=== PATIENT | male | born 1960 | race Caucasian/White ===

== ENCOUNTER 2021-06-16 12:17 | Emergency (ER) | payer OTHER ==
[~2021-06-16] VITALS: Ht 175.3 cm; Wt 115.9 kg
[2021-06-16] MEDS ORDERED: ORPHENADRINE CITRATE 60 MG/2 ML VIAL. ONE (12:44)
[2021-06-16] MEDS ORDERED: KETOROLAC 60 MG/2 ML VIAL. IM ONE ×2 (12:44→12:45)
[2021-06-16] MEDS ORDERED: ORPHENADRINE CITRATE 60 MG/2 ML VIAL. IM ONE (12:45)
--- NOTE | 2021-06-16 12:52 | PHYS DOC ---
Past History Past Surgical History: Coronary Bypass Surgery, Knee Replacement, Other Additional Past Surgical Histo: BACK SURGERY (LUIS ALBERTO SALAZAR APRN) General Adult EDM: Chief Complaint: BACK PAIN OR INJURY HPI: HPI: Patient is a 61-year-old male being seen in the ER for low back pain. Patient reports that he drove here from [place] today and is having worsening of his chronic low back pain. Patient reports that the low back pain started 2 weeks ago after moving furniture. Patient has a history of chronic low back pain and had a back surgery in November of this year. Patient takes 10 mg of oxycodone at home. Patient reports that the low back pain radiates down both legs. He rates it 10 out of 10. He took his oxycodone prior to arrival. He states that he has Flexeril but has not taken it. Patient denies any injury, saddle anesthesias, loss of bowel or bladder. Patient is ambulatory with the use of a walker. (LUIS ALBERTO SALAZAR APRN) Review of Systems: Review of Systems: 14 body systems of the review of systems have been reviewed. See HPI for pertinent positive and negative responses, otherwise all other systems are negative, nonpertinent or noncontributory (LUIS ALBERTO SALAZAR APRN) Allergies: Allergies: Allergies Coded Allergies Type Severity Reaction Last Updated Verified No Known Drug Allergies 06/16/21 No (LUIS ALBERTO SALAZAR APRN) Physical Exam: PE: Constitutional: Well developed, well nourished, no acute distress, non-toxic appearance. [] HENT: Normocephalic, atraumatic, bilateral external ears normal, oropharynx moist, no oral exudates, nose normal. [] Eyes: PERRL, EOMI, conjunctiva normal, no discharge. [] Neck: Normal range of motion, no cervical spinal tenderness, supple, no stridor. [] Cardiovascular:Heart rate regular rhythm, no murmur [] Lungs & Thorax: Bilateral breath sounds clear to auscultation [] Abdomen: Bowel sounds normal, soft, no tenderness, no masses, no pulsatile masses. [] Skin: Warm, dry, no erythema, no rash. [] Back: Lumbar tenderness with palpation, no crepitus Extremities: No tenderness, no cyanosis, no clubbing, ROM intact, no edema. [] Neurologic: Alert and oriented X 3, normal motor function, normal sensory function, no focal deficits noted. [] Psychologic: Affect normal, judgement normal, mood normal. [] (LUIS ALBERTO SALAZAR APRN) Current Patient Data: Vital Signs: Vital Signs Date Time Temp Pulse Resp B/P (MAP) Pulse Ox O2 Delivery O2 Flow Rate FiO2 06/16/21 12:34 98.3 96 18 152/81 98 Room Air (LUIS ALBERTO SALAZAR APRN) EKG: EKG: [] (LUIS ALBERTO SALAZAR APRN) Radiology/Procedures: Radiology/Procedures: PROCEDURE: CT LUMBAR SPINE WO CONTRAST Exam Date: 06/16/2021 12:[address] LUMBAR SPINE WO Indication: Reason: low back pain, hx surgery / Spl. Instructions: / History: . TECHNIQUE: CT scan of the lumbar spine was performed without intravenous contrast. Coronal and sagittal reconstructed images were reviewed as well. One or more of the following dose reduction techniques were utilized: *Automated exposure control (AEC) *Adjustment of mA and/or kV according to patient size *Use of iterative reconstruction technique *CT scan done according to ALARA, or ALARA/IMAGE GENTLY FINDINGS: Alignment is maintained without spondylolisthesis. The vertebral body heights are maintained without compression fracture. Mild multilevel degenerative changes are noted. No severe osseous central canal stenosis is seen. Moderate vascular calcifications are noted. The visualized retroperitoneum and paraspinal soft tissue structures otherwise appear normal. IMPRESSION: No acute fracture. Degenerative changes noted. Electronically signed by: Justin Severino MD (06/16/2021 2:02 PM) [facility] DICTATED AND SIGNED BY: JUSTIN SEVERINO MD DATE: 06/16/21 2847 CC: LUIS ALBERTO SALAZAR APRN; PCP,NO ~MTH0 0 [] (LUIS ALBERTO SALAZAR APRN) Heart Score: C/O Chest Pain: No Risk Factors: Risk Factors: DM, Current or recent (<one month) smoker, HTN, HLP, family history of CAD, obesity. Risk Scores: Score 0 - 3: 2.5% MACE over next 6 weeks - Discharge Home Score 4 - 6: 20.3% MACE over next 6 weeks - Admit for Clinical Observation Score 7 - 10: 72.7% MACE over next 6 weeks - Early Invasive Strategies (LUIS ALBERTO SALAZAR APRN) Course & Med Decision Making: Course & Med Decision Making Pertinent Labs and Imaging studies reviewed. (See chart for details) Patient is a 61-year-old male being seen in the ER for low back pain after moving furniture 2 weeks ago. Patient has a history of chronic back pain and back surgeries. Patient takes oxycodone and Flexeril at home. CT scanning of the lumbar spine was performed in the ER because patient was concerned that may may have reinjured his back following the moving of furniture. This showed no acute changes, degenerative changes noted. Patient treated with anti- inflammatory medication, muscle relaxer, pain medication in the ER. He was given nausea medication also. The dose of his at home Percocet given in ER. Patient receives oxycodone at home by his primary care provider and received 150 tablets on June 08. I discussed with patient all findings and diagnostic testing as well as the need to follow-up with PCP for further evaluation and treatment or return to the ER if any new or worsening symptoms. Strict return precautions were also discussed at length. Patient voiced understanding and agreement with the plan. Patient is hemodynamically stable at the time of disposition. (LUIS ALBERTO SALAZAR APRN) Dragon Disclaimer: Dragon Disclaimer: This electronic medical record was generated, in whole or in part, using a voice recognition dictation system. (LUIS ALBERTO SALAZAR APRN) Attending Co-Sign The patient was seen and interviewed as well as examined at the bedside. The chart was reviewed. The case was discussed. Agree with the plan of care. (JOSE C DOBBINS DO) Departure Departure: Impression: Primary Impression: Chronic back pain Qualified Codes: M54.42 - Lumbago with sciatica, left side; M54.41 - Lumbago with sciatica, right side; G89.29 - Other chronic pain Disposition: HOME / SELF CARE / HOMELESS Condition: GOOD Referrals: PCP,NO (PCP) Patient Instructions: Back Pain, Adult Additional Instructions: You were seen in the ER today for chronic back pain. A CT scan was performed of your lumbar spine and it was negative for any acute findings. You were treated with pain medication and nausea medication while in the ER. Please continue to take your oxycodone and Flexeril that you are prescribed by your primary care provider for your symptoms. You will need to follow-up with your primary care provider within a week if you require any additional pain medication. If you develop worsening of your back pain, loss of bowel or bladder, numbness or tingling in your groin or extremities, or any new injuries or concerns please return to the ER. EMERGENCY DEPARTMENT GENERAL DISCHARGE INSTRUCTIONS Thank you for coming to [facility] (ED) today and trusting us with you care. We trust that you had a positivie experience in our Emergency Department. If you wish to speak to the department management, you may call the director at [phone]. YOUR FOLLOW UP INSTRUCTIONS ARE FOLLOWS: 1. Do you have a private Doctor? If you do not have a private doctor, please ask for a resource list of physicians or clinics that may be able to assist you with follow up care. 2. The Emergency Physician has interpreted your x-rays. The X-Ray specialist will also review them. If there is a change in the findings, you will be notified in 48 hours when at all possible. 3. A lab test or culture has been done, your results will be reviewed and you will be notified if you need a change in treatment. ADDITIONAL INSTRUCTIONS AND INFORMATION: 1. Your care today has been supervised by a physician who is specially trained in emergency care. Many problems require more than one evaluation for a complete diagnosis and treatment. We recommend that you schedule your follow up appointment as recommended to ensure complete treatment of you illness or injury. If you are unable to obtain follow up care and continue to have a problem, or if your condition worsens, we recommend that you return to the ED. 2. We are not able to safely determine your condition over the phone nor are we able to give sound medical advice over the phone. For these safety reasons, if you call for medical advice we will ask you to come to the ED for further evaluation. 3. If you have any questions regarding these discharge instructions please call the ED at [phone]. SAFETY INFORMATION: In the interest of safety, wellness, and injury prevention; we encourage you to wear your sealbelt, if you smoke; quite smoking, and we encourage family to use a protective helmet for bicycling and other sporting events that present an increased risk for head injury. IF YOUR SYMPTOMS WORSEN OR NEW SYMPTOMS DEVELOP, OR YOU HAVE CONCERNS ABOUT YOUR CONDITION; OR IF YOUR CONDITION WORSENS WHILE YOU ARE WAITING FOR YOUR FOLLOW UP APPOINTMENT; EITHER CONTACT YOUR PRIMARY CARE DOCTOR, THE PHYSICIAN WHOSE NAME AND NUMBER YOU WERE GIVEN, OR RETURN TO THE ED IMMEDIATELY. LUIS ALBERTO SALAZAR APRN Jun 16, 2021 12:52 JOSE C DOBBINS DO Jun 17, 2021 06:20
[2021-06-16] MEDS ORDERED: ONDANSETRON ODT 4 MG TAB.RAPDIS PO ONE (13:00)
[2021-06-16] MEDS ORDERED: MORPHINE SULFATE 2 MG/ML DISP.SYRIN. IM ONE (13:00)
--- NOTE | 2021-06-16 14:04 | RAD ---
Exam Date: 06/16/2021 12:[address] LUMBAR SPINE WO Indication: Reason: low back pain, hx surgery / Spl. Instructions: / History: . TECHNIQUE: CT scan of the lumbar spine was performed without intravenous contrast. Coronal and sagi ttal reconstructed images were reviewed as well. One or more of the following dose reduction techniq ues were utilized: *Automated exposure control (AEC) *Adjustment of mA and/or kV according to patient size *Use of iterative reconstruction technique *CT scan done according to ALARA, or ALARA/IMAGE GENTLY FINDINGS: Alignment is maintained without spondylolisthesis. The vertebral body heights are maintained without compression fracture. Mild multilevel degenerative changes are noted. No severe osseous central ca nal stenosis is seen. Moderate vascular calcifications are noted. The visualized retroperitoneum an d paraspinal soft tissue structures otherwise appear normal. IMPRESSION: No acute fracture. Degenerative changes noted. Electronically signed by: Johnson Severino MD (06/16/2021 2:02 PM) [facility]
[2021-06-16] MEDS ORDERED: oxyCODONE/APAP 10/325 1 TAB TABLET PO ONE (14:15)
[2021-06-16 14:21] VITALS: BP 130/80
== END 2021-06-16 14:22 | disposition home or self-care (01) ==
LOC: ER 12:17
DX: M54.42 Lumbago with sciatica, left side (principal); M54.41 Lumbago with sciatica, right side; G89.29 Other chronic pain; Z95.1 Presence of aortocoronary bypass graft
CPT/HCPCS: 72131; 96372; 99284; J1885; J2270; J2360; Q0162

== ENCOUNTER 2021-08-18 13:56 | Emergency (ER) | payer OTHER ==
[~2021-08-18] VITALS: Ht 175.3 cm; Wt 110.7 kg
--- NOTE | 2021-08-18 16:08 | PHYS DOC ---
Past History Past Surgical History: Coronary Bypass Surgery, Knee Replacement, Other Additional Past Surgical Histo: BACK SURGERY (TERRY PACHECO APRN) Alcohol Use: None (TERRY PACHECO APRN) General Adult EDM: Chief Complaint: CONGESTION HPI: HPI: Patient is a 61-year-old male presents with nasal congestion and sinus drainage. Patient states symptoms started 5 days ago. Patient was concerned because he has a back surgery scheduled in a couple of weeks and does not want to be sick prior to the surgery. Patient has not been taking anything at home for symptom relief. Denies fever. Denies nausea/vomiting/diarrhea. (TERRY PACHECO APRN) Review of Systems: Review of Systems: ROS At least 10 ROS systems have been reviewed and are negative except as documented in the HPI. General: Negative except as outlined in HPI above. Skin: Negative except as outlined in HPI above. HEENT: Negative except as outlined in HPI above. Neck: Negative except as outlined in HPI above. Respiratory: Negative except as outlined in HPI above.. Cardiovascular: Negative except as outlined in HPI above. Abdomen: Negative except as outlined in HPI above. : Negative except as outlined in HPI above. Back/MSK: Negative except as outlined in HPI above. Neuro: Negative except as outlined in HPI above. Psych: Negative except as outlined in HPI above. (TERRY PACHECO APRN) Allergies: Allergies: Allergies Coded Allergies Type Severity Reaction Last Updated Verified azithromycin Allergy Unknown 08/18/21 Yes (TERRY PACHECO APRN) Physical Exam: PE: Constitutional: Well developed, well nourished, no acute distress, non-toxic appearance. [] HENT: Normocephalic, atraumatic, bilateral external ears normal, TM is translucentpale west, , rhinorrhea, sinus pressure, otalgiabilaterally Eyes: PERRLA, EOMI, conjunctiva normal, no discharge. [] Neck: Normal range of motion, no tenderness, supple, no stridor. [] Cardiovascular:Heart rate regular rhythm, no murmur [] Lungs & Thorax: Bilateral breath sounds clear to auscultation [] Abdomen: Bowel sounds normal, soft, no tenderness, no masses, no pulsatile masses. [] Skin: Warm, dry, no erythema, no rash. [] Back: No tenderness, no CVA tenderness. [] Extremities: No tenderness, no cyanosis, no clubbing, ROM intact, no edema. [] Neurologic: Alert and oriented X 3, normal motor function, normal sensory function, no focal deficits noted. [] Psychologic: Affect normal, judgement normal, mood normal. [] (TERRY PACHECO APRN) Current Patient Data: Vital Signs: Vital Signs Date Time Temp Pulse Resp B/P (MAP) Pulse Ox O2 Delivery O2 Flow Rate FiO2 08/18/21 14:24 98.4 93 18 112/75 (87) 97 Room Air (TERRY PACHECO APRN) EKG: EKG: [] (TERRY PACHECO APRN) Radiology/Procedures: Radiology/Procedures: [] (TERRY PACHECO APRN) Heart Score: C/O Chest Pain: No Risk Factors: Risk Factors: DM, Current or recent (<one month) smoker, HTN, HLP, family history of CAD, obesity. Risk Scores: Score 0 - 3: 2.5% MACE over next 6 weeks - Discharge Home Score 4 - 6: 20.3% MACE over next 6 weeks - Admit for Clinical Observation Score 7 - 10: 72.7% MACE over next 6 weeks - Early Invasive Strategies (TERRY PACHECO APRN) Course & Med Decision Making: Course & Med Decision Making Pertinent Labs and Imaging studies reviewed. (See chart for details) [] 61-year-old male presents with nasal congestion and otalgia. No abnormal findings on physical exam. Symptoms started 5 days ago. Advised patient to purchase [id number] Mucinex DM to help with symptoms along with Afrin. Patient should follow-up with primary care if symptoms do not improve. Patient is afebrile. Denies all other symptoms. Patient states he understands discharge instructions. Hemodynamically stable upon disposition. (TERRY PACHECO APRN) Course & Med Decision Making I was the Attending physician on the above date of service of this patient. This patient was evaluated, examined, treated, and dispositioned from the emergency department by the mid-level practitioner. Although I was working at the time , no assistance was requested. Electronically signed, Jose Del Rio DO (JOSE DEL RIO DO) Whit Disclaimer: Whit Disclaimer: This electronic medical record was generated, in whole or in part, using a voice recognition dictation system. (TERRY PACHECO APRN) Departure Departure: Impression: Primary Impression: Sinus pressure Additional Impression: Otalgia of both ears Disposition: HOME / SELF CARE / HOMELESS Condition: STABLE Referrals: DIPIKA HANSEN (PCP) Patient Instructions: Sinusitis, [id number] Additional Instructions: You were seen in the emergency room for sinus pressure and ear pain. Please purchase Mucinex DM [id number] and start taking to treat symptoms. Make sure you are drinking plenty of fluids as well. If your symptoms do not improve in the next few days I would follow-up with your PCP. EMERGENCY DEPARTMENT GENERAL DISCHARGE INSTRUCTIONS Thank you for coming to [facility] (ED) today and trusting us with you care. We trust that you had a positivie experience in our Emergency Department. If you wish to speak to the department management, you may call the director at [phone]. YOUR FOLLOW UP INSTRUCTIONS ARE FOLLOWS: 1. Do you have a private Doctor? If you do not have a private doctor, please ask for a resource list of physicians or clinics that may be able to assist you with follow up care. 2. The Emergency Physician has interpreted your x-rays. The X-Ray specialist will also review them. If there is a change in the findings, you will be notified in 48 hours when at all possible. 3. A lab test or culture has been done, your results will be reviewed and you will be notified if you need a change in treatment. ADDITIONAL INSTRUCTIONS AND INFORMATION: 1. Your care today has been supervised by a physician who is specially trained in emergency care. Many problems require more than one evaluation for a complete diagnosis and treatment. We recommend that you schedule your follow up appointment as recommended to ensure complete treatment of you illness or injury. If you are unable to obtain follow up care and continue to have a problem, or if your condition worsens, we recommend that you return to the ED. 2. We are not able to safely determine your condition over the phone nor are we able to give sound medical advice over the phone. For these safety reasons, if you call for medical advice we will ask you to come to the ED for further evaluation. 3. If you have any questions regarding these discharge instructions please call the ED at [phone]. SAFETY INFORMATION: In the interest of safety, wellness, and injury prevention; we encourage you to wear your sealbelt, if you smoke; quite smoking, and we encourage family to use a protective helmet for bicycling and other sporting events that present an increased risk for head injury. IF YOUR SYMPTOMS WORSEN OR NEW SYMPTOMS DEVELOP, OR YOU HAVE CONCERNS ABOUT YOUR CONDITION; OR IF YOUR CONDITION WORSENS WHILE YOU ARE WAITING FOR YOUR FOLLOW UP APPOINTMENT; EITHER CONTACT YOUR PRIMARY CARE DOCTOR, THE PHYSICIAN WHOSE NAME AND NUMBER YOU WERE GIVEN, OR RETURN TO THE ED IMMEDIATELY. TERRY PACHECO APRN Aug 18, 2021 16:08 JOSE DEL RIO DO Aug 22, 2021 00:32
[2021-08-18 16:33] VITALS: BP 126/75
== END 2021-08-18 16:32 | disposition home or self-care (01) ==
LOC: ER 13:56
DX: J32.9 Chronic sinusitis, unspecified (principal); H92.03 Otalgia, bilateral; Z95.1 Presence of aortocoronary bypass graft; Z88.1 Allergy status to other antibiotic agents
CPT/HCPCS: 99284

== ENCOUNTER 2021-08-26 12:28 | Emergency (ER) | payer OTHER ==
[~2021-08-26] VITALS: Ht 177.8 cm; Wt 115.0 kg
--- NOTE | 2021-08-26 12:39 | PHYS DOC ---
Past History Past Medical History: Diabetes Past Surgical History: Coronary Bypass Surgery, Knee Replacement, Other Additional Past Surgical Histo: BACK SURGERY Alcohol Use: None Adult General Chief Complaint Chief Complaint: WEAKNESS/GENERALIZED HPI HPI Patient is a 61-year-old male presenting via EMS for multiple complaints. Laureano benedict reports he has had a generalized bandlike headache that has been going on for past 1 week. Admits he has had major changes in medication as he is currently being cycled off various narcotic and benzodiazepine medications. States he is also in the process of undergoing a revision back surgery for chronic back issues at [facility] that was scheduled for this up coming Friday. States 72 hours ago he started developing generalized URI symptoms, has had rhinorrhea, postnasal drip, nasal congestion and generalized fatigue. He is not vaccinated against COVID-19 and discloses he has not been febrile, had any loss of taste or smell or any GI issues. He reports his symptoms have been off going and he has had waxing and waning numbness to his left face primarily as left lip for past 16 hours. Due to ongoing constellation of symptoms, he called EMS for transport to our facility as he was concern for TIA as he has suffered from these in the past. On EMS arrival, patient was found to be hemodynamically stable, GCS 15, [id number] glucose unremarkable. On arrival, patient continuing to complain of bandlike headache and numbness to left face Review of Systems Review of Systems Fourteen body systems of review of systems have been reviewed. See HPI for pertinent positives and negative responses, other matute all other systems are negative, non-pertinent or non-contributory Allergies Allergies Allergies Coded Allergies Type Severity Reaction Last Updated Verified azithromycin Allergy Unknown 08/18/21 Yes Physical Exam Physical Exam General: Appears well, non toxic, and comfortable Skin: Warm, dry. Normal for ethnicity. HEENT: Atraumatic. PERRLA. Moist mucous membranes. Neck: Trachea midline. Normal ROM. Respiratory: Normal WOB. CTAB w/o w/r/r. No tachypnea. Cardiovascular: Regular rate and rhythm. Normal peripheral perfusion. No edema. Abdomen: Soft. Non tender. No distension. Back: Normal ROM. Musculoskeletal: No swelling or deformity. Neuro: Alert and oriented x 4. MAEE. GCS 15. Normal FNF. Negative pronator drift. Normal heel to ha. Normal Reema. CN II-XII intact but patient does admit to decreased sensation to touch of left V1 and V3 distributions of facial nerve. Normal strength and sensation. Normal speech. Psych: Normal affect and mood. Current Patient Data Vital Signs Vital Signs Date Time Temp Pulse Resp B/P (MAP) Pulse Ox O2 Delivery O2 Flow Rate FiO2 08/26/21 12:28 98.6 92 18 149/105 (120) 99 Room Air Vital Signs Date Time Temp Pulse Resp B/P (MAP) Pulse Ox O2 Delivery O2 Flow Rate FiO2 08/26/21 12:28 98.6 92 18 149/105 (120) 99 Room Air Lab Results Laboratory Tests Test 08/26/21 12:40 08/26/21 13:45 White Blood Count 7.2 x10^3/uL Red Blood Count 4.74 x10^6/uL Hemoglobin 12.9 g/dL Hematocrit 38.1 % Mean Corpuscular Volume 80 fL Mean Corpuscular Hemoglobin 27 pg Mean Corpuscular Hemoglobin Concent 34 g/dL Red Cell Distribution Width 13.9 % Platelet Count 274 x10^3/uL Neutrophils (%) (Auto) 57 % Lymphocytes (%) (Auto) 34 % Monocytes (%) (Auto) 5 % Eosinophils (%) (Auto) 3 % Basophils (%) (Auto) 1 % Neutrophils # (Auto) 4.1 x10^3uL Lymphocytes # (Auto) 2.4 x10^3/uL Monocytes # (Auto) 0.4 x10^3/uL Eosinophils # (Auto) 0.2 x10^3/uL Basophils # (Auto) 0.1 x10^3/uL Sodium Level 138 mmol/L Potassium Level 3.6 mmol/L Chloride Level 102 mmol/L Carbon Dioxide Level 28 mmol/L Anion Gap 8 Blood Urea Nitrogen 17 mg/dL Creatinine 1.0 mg/dL Estimated GFR (Cockcroft-Gault) 76.2 BUN/Creatinine Ratio 17 Glucose Level 190 mg/dL Calcium Level 8.9 mg/dL Total Bilirubin 0.3 mg/dL Aspartate Amino Transf (AST/SGOT) 12 U/L Alanine Aminotransferase (ALT/SGPT) 32 U/L Alkaline Phosphatase 109 U/L Troponin I High Sensitivity 6 ng/L Total Protein 6.2 g/dL Albumin 3.5 g/dL Albumin/Globulin Ratio 1.3 SARS-CoV-2 Antigen (Rapid) Negative Current Medications Medications (Trade) Dose Ordered Sig/Suly Route PRN Reason Start Time Stop Time Status Last Admin Dose Admin Iohexol (Omnipaque 350 Mg/ml) 100 ml 1X ONCE IV 08/26/21 13:00 08/26/21 13:01 DC 08/26/21 13:00 Info (Do NOT chart on this entry -- for MONITORING) 1 each PRN DAILY PRN MC SEE COMMENTS 08/26/21 13:15 08/28/21 13:14 Prochlorperazine Edisylate (Compazine) 10 mg 1X ONCE IV 08/26/21 13:15 08/26/21 13:20 DC 08/26/21 13:21 Diphenhydramine HCl (Benadryl) 25 mg 1X ONCE IVP 08/26/21 13:15 08/26/21 13:20 DC 08/26/21 13:20 EKG EKG EKG ordered and interpreted by myself at 1245 hrs. as sinus rhythm at 83 bpm, unremarkable intervals, left axis deviation, no obvious ischemic findings, no STEMI Radiology/Procedures Radiology/Procedures EXAM: CHEST 1 VIEW History: Dizziness COMPARISON: None available. TECHNIQUE: Single portable radiograph of the chest FINDINGS: The cardiac silhouette is unremarkable. The lungs are clear bilaterally. The costophrenic sulci are clear and well demarcated. IMPRESSION: No radiographic evidence of an acute cardiopulmonary process. Electronically signed by: Phoenix Paul MD (08/26/2021 1:29 PM) [id number] ///////////////// CT head without contrast 08/26/2021. Reason for exam: Dizziness. Helical noncontrast images were performed. Exposure: One or more of the followi ng individualized dose reduction techniques were utilized for this examination: 1. Automated exposure control 2. Adjustment of the mA and/or kV according to patient size 3. Use of iterative reconstruction technique. FINDINGS: There is no apparent intracranial hemorrhage or abnormal extra-axial fluid collection. No area of abnormal density is seen. The ventricles and basilar cisterns are normally positioned. The sinuses and mastoid air cells appear clear. IMPRESSION: No acute abnormality. CTA head and neck with and without contrast 08/26/2021 Thin section CTA images were performed through the neck and head using infusion of 100 mL Omnipaque 350. Multiplanar and 3-D reformations were performed. Carotid stenoses in the neck were graded per NASCET criteria. Exposure: One or more of the following individualized dose reduction techniques were utilized for this examination: 1. Automated exposure control 2. Adjustment of the mA and/or kV according to patient size 3. Use of iterative reconstruction technique. CTA NECK: There is the standard branching pattern of the great vessels. The common carotid artery show no significant plaque or narrowing. There is some plaque at both carotid bulbs without evidence of significant stenosis. The internal carotid arteries appear normal through their cervical segments. Both vertebral arteries are patent and are similar in caliber. They show no apparent abnormality through their cervical segments. No subclavian artery abnormality is seen. Although this study was not performed to evaluate other structures, no mass or adenopathy is seen in the neck. The airway appears normal. The salivary glands and thyroid show no abnormality. The lung apices, paranasal sinuses and mastoid air cells are clear. CTA HEAD: The distal vertebral arteries appear normal extending to their confluence. The basilar artery and internal carotid arteries are patent extending through the skull base to the brain. There is some calcified plaque along both internal carotid arteries at the level of the skull base. As well as can be determined, there is no significant narrowing, although calcification at the distal left ICA somewhat limits evaluation. The anterior, middle and posterior cerebral branches are patent bilaterally and show no apparent abnormality extending to their major branch points. No abnormal vascularity is seen. The visualized cerebellar branches appear normal. IMPRESSION: CTA neck: Atherosclerosis. No evidence of vessel occlusion or significant stenosis. CTA HEAD: Atherosclerosis. No evidence of large vessel occlusion. No apparent significant stenosis, although evaluation of the distal left ICA is somewhat limited due to calcified plaque. Electronically signed by: Jonathan Kowalski Jr., MD (08/26/2021 2:09 PM) [id number] Heart Score C/O Chest Pain: No HEART Score for Chest Pain: HEART Score for Chest Pain Response (Comments) Value History Slighlty/Non-Suspicious 0 ECG Normal 0 Age >45 - < 65 1 Risk Factors 1 or 2 Risk Factors 1 Troponin < Normal Limit 0 Total 2 Risk Factors: Risk Factors: DM, Current or recent (<one month) smoker, HTN, HLP, family history of CAD, obesity. Risk Scores: Risk Factors: DM, Current or recent (<one month) smoker, HTN, HLP, family history of CAD, obesity. Course & Med Decision Making Course & Med Decision Making ABCs unremarkable HPI physical exam and comprehensive ER work-up nonconcerning for any emergent or surgical issues Patient likely suffering from URI, COVID-19 rapid test negative with PCR pending. Continued supportive care advised Patient dealing with significant chronic pain. Exacerbated by recent efforts in outpatient setting to decrease outpatient opioid and benzodiazepine dependence I disclose little indication for further diagnostic work-up and/or need for hosp italization at present. Patient and significant other at bedside agreed. Joint decision among all for continued supportive care practices and close outpatient follow-up Dragon Disclaimer Dragon Disclaimer This electronic medical record was generated, in whole or in part, using a voice recognition dictation system. NIH Stroke Scale: NIH Stroke Scale Response (Comments) Value Level of Consciousness: 0 Alert/Responsive 0 LOC Questions: 0 Answers both correctly 0 LOC Commands: 0 Performs both tasks 0 Best Gaze: 0 Normal 0 Visual: 0 No visual loss 0 Facial Palsy: 0 Normal, symmetrical 0 Motor - Left Arm 0 No drift 0 Motor - Right Arm 0 No drift 0 Motor - Left Leg 0 No drift 0 Motor: Right Leg 0 No drift 0 Limb Ataxia: 0 Absent 0 Sensory: 1 Mid to moderate loss 1 Best Language: 0 Normal 0 Dysathria: 0 Normal 0 Extinction and Inattention: 0 Normal 0 Total 1 Departure Departure: Impression: Primary Impression: Headache Additional Impressions: Paresthesia Chronic back pain Person under investigation for COVID-19 Disposition: 01 HOME / SELF CARE / HOMELESS Condition: STABLE Referrals: DIPIKA HANSEN (PCP) Additional Instructions: As discussed prior to ER departure, your vitals, physical exam and comprehensive ER work-up were nonconcerning for any emergent or surgical issues. As discussed, you have numerous chronic medical issues that are ongoing and appear uncontrolled. You are pending outpatient back surgery. You have a history of headaches and allergies. I disclose there was no obvious intracranial abnormality such as stroke and there was little indication for further diagn ostic work-up and/or hospitalization based on our work-up today. With that said, it is imperative that you contact your primary care physician first thing in the morning to review ER visit today and need for close outpatient follow-up. We tested you for COVID-19 but this test does not come back for 1 to 2 days. In the meantime you need to quarantine yourself at home away from all other individuals, especially those who are elderly or have any other chronic health issues or an immunocompromised status. You should return to the ED if you develop worsening cough, shortness of breath, chest pain, or any other new or concerning symptoms. Alternate Tylenol and ibuprofen as needed for body aches and pain. If your test does come back positive you need to quarantine yourself for 10 days until symptom-free. You should make sure to drink plenty of fluids and get plenty of rest. If any concerning signs or symptoms present prior to outpatient follow-up please do not hesitate to come back for repeat evaluation. It was a pleasure to take care of you and I wish you the best going forward Problem Qualifiers JOSE DEL RIO DO Aug 26, 2021 12:39
[2021-08-26 12:58] LABS: BASO # 0.1 x10^3/uL (0.0-0.2); BASO % 1 % (0-3); EOS # 0.2 x10^3/uL (0.0-0.7); EOS % 3 % (0-3); HEMATOCRIT 38.1 % (39.0-53.0); HEMOGLOBIN 12.9 g/dL (13.0-17.5); LYMPH # 2.4 x10^3/uL (1.0-4.8); LYMPH % 34 % (24-48); MEAN CORPUSCULAR HEMOGLOBIN 27 pg (25-35); MEAN CORPUSCULAR HGB CONC 34 g/dL (31-37); MEAN CORPUSCULAR VOLUME 80 fL (79-100); MONO # 0.4 x10^3/uL (0.0-1.1); MONO % 5 % (0-9); NEUT # 4.1 x10^3uL (1.8-7.7); NEUT % 57 % (31-73); PLATELET COUNT 274 x10^3/uL (140-400); RED BLOOD COUNT 4.74 x10^6/uL (4.30-5.70); RED CELL DISTRIBUTION WIDTH 13.9 % (11.5-14.5); WHITE BLOOD COUNT 7.2 x10^3/uL (4.0-11.0)
[2021-08-26] MEDS ORDERED: IOHEXOL 350 MG/ML 100 ML VIAL. IV ONE (13:00)
[2021-08-26 13:08] LABS: CALCIUM 8.9 mg/dL (8.5-10.1); GFR 76.2; POTASSIUM 3.6 mmol/L (3.5-5.1)
[2021-08-26 13:15] LABS: ALBUMIN 3.5 g/dL (3.4-5.0); ALBUMIN/GLOBULIN RATIO 1.3 (1.0-1.7); TOTAL BILIRUBIN 0.3 mg/dL (0.2-1.0); TOTAL PROTEIN 6.2 g/dL (6.4-8.2)
[2021-08-26] MEDS ORDERED: CONTRAST GIVEN. MC PRN (13:15)
[2021-08-26] MEDS ORDERED: diphenhydrAMINE 50 MG/ML VIAL IVP ONE (13:15)
[2021-08-26] MEDS ORDERED: PROCHLORPERAZINE 10 MG/2 ML VIAL. IV ONE (13:15)
--- NOTE | 2021-08-26 13:15 | EKG ---
[address] [address] Test Date: 2021-08-26 Test Time: 12:42:25 Pat Name: ROLAN GODDARD Department: Room: Gender: M Grind Operator: ARTIS : 1960 Requested By: JOSE DEL RIO Order Number: [id number] Reading MD: Checo Kasper MD Measurements Intervals [place] Rate: 83 P: 31 CT: 190 QRS: -8 QRSD: 88 T: 28 QT: 362 QTc: 431 Interpretive Statements SINUS RHYTHM Electronically Signed On 08-26-2021 13:36:23 CATH LAB TECHNOLOGIST by Checo Kasper MD
--- NOTE | 2021-08-26 13:32 | RAD ---
EXAM: CHEST 1 VIEW History: Dizziness COMPARISON: None available. TECHNIQUE: Single portable radiograph of the chest FINDINGS: The cardiac silhouette is unremarkable. The lungs are clear bilaterally. The costophrenic sulci are clear and well demarcated. IMPRESSION: No radiographic evidence of an acute cardiopulmonary process. Electronically signed by: Phoenix Paul MD (08/26/2021 1:29 PM) [id number]
--- NOTE | 2021-08-26 14:11 | RAD ---
CT head without contrast 08/26/2021. Reason for exam: Dizziness. Helical noncontrast images were performed. Exposure: One or more of the following individualized dose reduction techniques were utilized for this examination: 1. Automated exposure control 2. Adjustme nt of the mA and/or kV according to patient size 3. Use of iterative reconstruction technique. FINDINGS: There is no apparent intracranial hemorrhage or abnormal extra-axial fluid collection. No a roney of abnormal density is seen. The ventricles and basilar cisterns are normally positioned. The sin uses and mastoid air cells appear clear. IMPRESSION: No acute abnormality. CTA head and neck with and without contrast 08/26/2021 Thin section CTA images were performed through the neck and head using infusion of 100 mL Omnipaque 3 50. Multiplanar and 3-D reformations were performed. Carotid stenoses in the neck were graded per RON CET criteria. Exposure: One or more of the following individualized dose reduction techniques were ut ilized for this examination: 1. Automated exposure control 2. Adjustment of the mA and/or kV accord ing to patient size 3. Use of iterative reconstruction technique. CTA NECK: There is the standard branching pattern of the great vessels. The common carotid artery bassam w no significant plaque or narrowing. There is some plaque at both carotid bulbs without evidence of significant stenosis. The internal carotid arteries appear normal through their cervical segments. Jose th vertebral arteries are patent and are similar in caliber. They show no apparent abnormality throug h their cervical segments. No subclavian artery abnormality is seen. Although this study was not performed to evaluate other structures, no mass or adenopathy is seen in the neck. The airway appears normal. The salivary glands and thyroid show no abnormality. The lung ap ices, paranasal sinuses and mastoid air cells are clear. CTA HEAD: The distal vertebral arteries appear normal extending to their confluence. The basilar song ry and internal carotid arteries are patent extending through the skull base to the brain. There is s ome calcified plaque along both internal carotid arteries at the level of the skull base. As well as can be determined, there is no significant narrowing, although calcification at the distal left ICA s omewhat limits evaluation. The anterior, middle and posterior cerebral branches are patent bilaterall y and show no apparent abnormality extending to their major branch points. No abnormal vascularity is seen. The visualized cerebellar branches appear normal. IMPRESSION: CTA neck: Atherosclerosis. No evidence of vessel occlusion or significant stenosis. CTA HEAD: Atherosclerosis. No evidence of large vessel occlusion. No apparent significant stenosis, a lthough evaluation of the distal left ICA is somewhat limited due to calcified plaque. Electronically signed by: Jonathan Kowalski Jr., MD (08/26/2021 2:09 PM) [id number]
[2021-08-26 15:05] VITALS: BP 142/98
== END 2021-08-26 15:05 | disposition home or self-care (01) ==
LOC: ER 12:28
DX: R51.9 Headache, unspecified (principal); R20.2 Paresthesia of skin; G89.29 Other chronic pain; E11.9 Type 2 diabetes mellitus without complications; Z20.822 Contact with and (suspected) exposure to COVID-19; Z95.1 Presence of aortocoronary bypass graft; Z88.1 Allergy status to other antibiotic agents
CPT/HCPCS: 36415; 70450; 70496; 70498; 71045; 80053; 84484; 85025; 87426; 93005; 96374; 96375; 99285; C9803; J0780; J1200; Q9967; U0003

== ENCOUNTER 2021-10-15 11:30 | Emergency (ER) | payer OTHER ==
[~2021-10-15] VITALS: Ht 175.3 cm; Wt 112.0 kg
--- NOTE | 2021-10-15 11:51 | PHYS DOC ---
Past History Past Medical History: Diabetes Past Surgical History: Cholecystectomy, Coronary Bypass Surgery, Knee Replacement Additional Past Surgical Histo: BACK SURGERY Alcohol Use: Sober General Adult EDM: Chief Complaint: ALLERGIC REACTION HPI: HPI: Patient is a 61-year-old male who presents to the emergency department for an a llergic reaction. Patient reports that 45 minutes ago he started having a rash to his back and his hands and feels like he is having swelling to his tongue and shortness of breath. Patient thinks that he is allergic to his dish soap that he used today. Patient denies any drooling, nausea, vomiting, fevers. He took 50 mg of Benadryl prior to arrival. Review of Systems: Review of Systems: 14 body systems of the review of systems have been reviewed. See HPI for pertinent positive and negative responses, otherwise all other systems are negative, nonpertinent or noncontributory Allergies: Allergies: Allergies Coded Allergies Type Severity Reaction Last Updated Verified Iodinated Contrast Media Allergy Unknown 08/26/21 Yes azithromycin Allergy Unknown 08/18/21 Yes Physical Exam: PE: Constitutional: Well developed, well nourished, no acute distress, non-toxic appearance. [] HENT: Normocephalic, atraumatic, bilateral external ears normal, oropharynx moist, no oral exudates, no oropharyngeal edema, no oral lesions, patient maintaining secretions, uvula midline,, nose normal. [] Eyes: PERRL, EOMI, conjunctiva normal, no discharge. [] Neck: Normal range of motion, no tenderness, supple, no stridor. [] Cardiovascular:Heart rate regular rhythm, no murmur [] Lungs & Thorax: Bilateral breath sounds clear to auscultation [] Abdomen: Bowel sounds normal, soft, no tenderness, no masses, no pulsatile masses. [] Skin: Warm, dry, no erythema, hive-like rash noted to patient's back and bilateral upper arms Back: Normal range of motion Extremities: No tenderness, no cyanosis, no clubbing, ROM intact, no edema. [] Neurologic: Alert and oriented X 3, normal motor function, normal sensory function, no focal deficits noted. [] Psychologic: Affect normal, judgement normal, mood normal. [] EKG: EKG: [] Radiology/Procedures: Radiology/Procedures: [] Heart Score: C/O Chest Pain: N/A Risk Factors: Risk Factors: DM, Current or recent (<one month) smoker, HTN, HLP, family history of CAD, obesity. Risk Scores: Score 0 - 3: 2.5% MACE over next 6 weeks - Discharge Home Score 4 - 6: 20.3% MACE over next 6 weeks - Admit for Clinical Observation Score 7 - 10: 72.7% MACE over next 6 weeks - Early Invasive Strategies Course & Med Decision Making: Course & Med Decision Making Pertinent Labs and Imaging studies reviewed. (See chart for details) [] Patient presents to the emergency department for allergic reaction to his dish soap. Patient has a rash to his back and bilateral upper arms. Patient took 50 mg of Benadryl prior to arrival. Patient also treated with steroid and Pepcid. Patient reports complete resolution in his symptoms following treatment in the emergency department. He was observed in the emergency department, and to the rash has resolved. Patient advised to continue taking Benadryl if he develops a rash and he will be discharged home with a steroid. I discussed with patient all findings and diagnostic testing as well as the need to follow-up with PCP for further evaluation and treatment or return to the ER if any new or worsening symptoms. Strict return precautions were also discussed at length. Patient voiced understanding and agreement with the plan. Patient is hemodynamically stable at the time of disposition. Whit Disclaimer: Whit Disclaimer: This electronic medical record was generated, in whole or in part, using a voice recognition dictation system. Departure Departure: Impression: Primary Impression: Allergic reaction Qualified Codes: T78.40XA - Allergy, unspecified, initial encounter Additional Impression: Urticaria Disposition: 01 HOME / SELF CARE / HOMELESS Condition: GOOD Referrals: PCP,NO (PCP) Patient Instructions: Rash Additional Instructions: You were seen in the emergency department for an allergic reaction. You were treated with allergic reaction cocktail consisting of Pepcid and a steroid. If you develop a rash at home, you can take Benadryl as directed. You can also take Pepcid [id number]. You are being discharged home with a steroid to take as directed. Please avoid the allergen. Please follow-up with your primary care provider tomorrow regarding your ER visit. Please return to the emergency department if you develop rash, shortness of breath, chest pain, high fevers refractory to treatment, inability to swallow or maintaining your secretions, intractable nausea or vomiting. Scripts Prednisone (PREDNISONE) 20 Mg Tablet 2 TAB PO DAILY for allergies for 5 Days, #10 TAB 0 Refills Prov: LUIS ALBERTO SALAZAR APRN 10/15/21 LUIS ALBERTO SALAZAR APRN Oct 15, 2021 11:51
[2021-10-15] MEDS ORDERED: FAMOTIDINE 20 MG/2 ML VIAL IVP ONE ×2 (12:00)
[2021-10-15] MEDS ORDERED: methylPREDNISolone SOD SUCC PF 125 MG/2 ML VIAL. IV ONE (12:00)
[2021-10-15] MEDS ORDERED: PRED20TA PO (12:36)
[2021-10-15 12:55] VITALS: BP 138/86
== END 2021-10-15 13:00 | disposition home or self-care (01) ==
LOC: ER 11:30
DX: T78.40XA Allergy, unspecified, initial encounter (principal); L50.9 Urticaria, unspecified; E11.9 Type 2 diabetes mellitus without complications; Z95.1 Presence of aortocoronary bypass graft; Z91.041 Radiographic dye allergy status; Z88.1 Allergy status to other antibiotic agents; X58.XXXA Exposure to other specified factors, initial encounter
CPT/HCPCS: 96374; 96375; 99284; J2930; J3490

== ENCOUNTER → 2021-11-06 | Outpatient (CLI) | payer MEDICARE, OTHER ==
[2021-10-15 12:55] VITALS: BP 138/86
[~2021-11-06] MED LIST: PRED20TA PO
--- NOTE | 2021-11-06 09:26 | RAD ---
EXAM: CT NECK SOFT TISSUE WITHOUT CONTRAST DATE: 11/06/2021 8:58 AM INDICATION: SIALADENITIS COMPARISON: None. TECHNIQUE: Axial computed tomography images of the neck without intravenous contrast according to t standard neck protocol. Multiplanar reformats were performed. One or more of the following dose re duction techniques were utilized: Automated exposure control (AEC), Adjustment of mA and/or kV accord ing to patient size, Use of iterative reconstruction technique such as ASiR, CT scan done according t o ALARA and image gently/image wisely FINDINGS: No cervical mass or lymphadenopathy. The parotid, submandibular, and thyroid glands are normal. The u nenhanced vessels of the neck are normal. The visualized aerodigestive tract is normal. The visualized posterior fossa and brain is normal. The visualized orbits and paranasal sinuses are n ormal. Moderate multilevel degenerative disc desiccation. Multilevel spinal canal stenosis secondary to disc protrusions and marginal osteophytes. Multilevel neural foraminal narrowing secondary to uncovertebr al and facet arthrosis. The visualized lung apices are clear. IMPRESSION: No asymmetric salivary gland enlargement or inflammation. No fluid collection. No sialolithiasis. Electronically signed by: Patel Bangura MD (11/06/2021 9:24 AM) [id number]
== END ==
LOC: CT 08:47
PROVIDERS: ATTEND Otolaryngology
DX: K11.20 Sialoadenitis, unspecified (principal); M25.78 Osteophyte, vertebrae; M48.00 Spinal stenosis, site unspecified
CPT/HCPCS: 70490

== ENCOUNTER → 2021-11-20 | Outpatient (CLI) | payer MEDICARE, OTHER ==
--- NOTE | 2021-11-21 10:57 | CARD ---
MR#: [id number] Date of Study: 11/20/2021 Ordering Physician: CM GRIFFIN, Referring Physician: CM GRIFFIN, Tech: Cecille Rodriguez, [facility] APPROVED REPORT EXAM: Two-dimensional and M-mode echocardiogram with Doppler and color Doppler. Other Information Quality : AverageHR: 81bpm INDICATION Cardiac Disease: CAD RISK FACTORS Hypertension Hyperlipidemia Diabetes Asthma 2D DIMENSIONS Left Atrium(2D)4.0 (1.6-4.0cm)IVSd1.2 (0.7-1.1cm) Aortic Root(2D)3.2 (2.0-3.7cm)LVDd5.8 (3.9-5.9cm) LVOT Diameter2.3 (1.8-2.4cm)PWd1.2 (0.7-1.1cm) LVDs3.8 (2.5-4.0cm)FS (%) 35.4 % SV107.5 ml Aortic Valve AoV Peak Abraham.121.1cm/sAoV VTI22.9cm AO Peak GR.5.9mmHgLVOT Peak Abraham.95.8cm/s LVOT VTI 17.88cmAO Mean GR.3mmHg BRIGIDO (VMAX)3.74bk7LMR (VTI)3.12cm2 Mitral Valve MV E Cvfuofht22.8cm/sMV E Peak Gr.2mmHg MV DECEL [id number] A Xfagsskb54.7cm/s MV E Mean Gr.1mmHgE/A Ratio0.8 Pulmonary Valve PV Peak Ykncidoa59.8cm/sPV Peak Grad.3mmHg LEFT VENTRICLE The left ventricle is normal size. There is mild concentric left ventricular hypertrophy. The left ve ntricular systolic function is normal and the ejection fraction is within normal range. The Ejection Fraction is 50-55%. There is normal LV segmental wall motion. Transmitral Doppler flow pattern is Gra de I-abnormal relaxation pattern. RIGHT VENTRICLE The right ventricle is mildly dilated. There is normal right ventricular wall thickness. The right ve ntricular systolic function is normal. ATRIA The left atrium size is normal. The right atrium is borderline dilated. The interatrial septum is int act with no evidence for an atrial septal defect or patent foramen ovale as noted on 2-D or Doppler i maging. AORTIC VALVE The aortic valve is normal in structure and function. Doppler and Color Flow revealed no significant aortic regurgitation. There is no significant aortic valvular stenosis. Calculated aortic valve area is 3.1 cm2 with maximum pressure gradient of 7 mmHg and mean pressure gradient of 4 mmHg. MITRAL VALVE The mitral valve is normal in structure and function. There is no evidence of mitral valve prolapse. There is no mitral valve stenosis. Doppler and Color Flow revealed trace mitral valve regurgitation. TRICUSPID VALVE The tricuspid valve is normal in structure and function. Doppler and Color Flow revealed no tricuspid valve regurgitation noted. There is no tricuspid valve stenosis. PULMONIC VALVE The pulmonic valve is not well visualized. Doppler and Color Flow revealed no pulmonic valvular regur gitation. GREAT VESSELS The aortic root is normal in size. The ascending aorta is mildly dilated measuring 3.7 cm. The IVC is normal in size and collapses >50% with inspiration. PERICARDIAL EFFUSION There is a trace pericardial effusion with no hemodynamic significance. Critical Notification Critical Value: No <Conclusion> The left ventricle is normal size. The left ventricular systolic function is normal and the ejection fraction is within normal range. The Ejection Fraction is 50-55%. There is mild concentric left ventricular hypertrophy. Doppler and Color Flow revealed no significant aortic regurgitation. There is no significant aortic valvular stenosis. Doppler and Color Flow revealed trace mitral valve regurgitation. Doppler and Color Flow revealed no tricuspid valve regurgitation noted. The ascending aorta is mildly dilated measuring 3.7 cm. Signed by : Cm Griffin MD Electronically Approved : 11/21/2021 10:56:57
== END ==
LOC: ECHO 12:46
PROVIDERS: ATTEND Internal Medicine Cardiovascular Disease
DX: I51.7 Cardiomegaly (principal); I77.819 Aortic ectasia, unspecified site; I25.10 Atherosclerotic heart disease of native coronary artery without angina pectoris
CPT/HCPCS: 93306